=== PATIENT | male | born 1975 | race Caucasian/White ===

== ENCOUNTER → 2018-02-06 | Outpatient (CLI) | payer BC | END | disposition home or self-care (01) | LOC: HKI 11:46 | DX: M23.221 Derangement of posterior horn of medial meniscus due to old tear or injury, right knee (principal) | CPT/HCPCS: Z7500 ==

== ENCOUNTER 2018-04-20 05:24 | Day surgery (SDC) | payer BC ==
[2018-04-20] MEDS ORDERED: ROPIVACAINE 0.5 % 30 ML VIAL ×2 (06:52→07:40)
[2018-04-20] MEDS ORDERED: DESFLURANE 15 MIN (07:00)
[2018-04-20] MEDS ORDERED: GLYCOPYRROLATE 0.4 MG INJ (07:00)
[2018-04-20] MEDS ORDERED: SUCCINYLCHOLINE CHLORIDE 100 MG/5 ML SYG IV (07:00)
[2018-04-20] MEDS: BACITRACIN/POLYMYXIN 28.35 GM OINT TOP (07:16)
[2018-04-20] MEDS: ROPIVACAINE 0.5 % 30 ML VIAL (07:17)
[2018-04-20] MEDS: POLYMYXIN/BACITRACIN 1L IRRIG (07:17)
[2018-04-20] MEDS ORDERED: ONDANSETRON 4 MG INJ IV (07:30)
[2018-04-20] MEDS ORDERED: DIPHENHYDRAMINE 50 MG INJ IV (07:30)
[2018-04-20] MEDS ORDERED: HYDROmorphONE 1 MG/5 ML IV SYRINGE IV (07:30)
[2018-04-20] MEDS ORDERED: METOCLOPRAMIDE 10 MG INJ IV (07:30)
[2018-04-20] MEDS ORDERED: FENTAnyl 50 MCG/ML VIAL IV ×3 (07:30)
[2018-04-20] MEDS ORDERED: ALBUTEROL 0.083% (NEB) 2.5 MG/3 ML AMP HHN (07:30)
[2018-04-20] MEDS ORDERED: FENTAnyl 50 MCG/ML VIAL (07:39)
[2018-04-20] MEDS ORDERED: MIDAZOLAM 1 MG/ML 2 ML INJ (07:39)
[2018-04-20] MEDS ORDERED: morphine 2 MG INJ IV (08:00)
[2018-04-20] MEDS ORDERED: PROPOFOL 20 ML (08:23)
[2018-04-20] MEDS ORDERED: CEFAZOLIN 1 GM INJ (08:23)
[2018-04-20] MEDS ORDERED: LIDOCAINE 100 MG SYRINGE (08:23)
[2018-04-20] MEDS ORDERED: ROCURONIUM 50 MG INJ (08:23)
[2018-04-20] MEDS ORDERED: SUGAMMADEX SODIUM 200 MG/2 ML VIAL IV (08:24)
[2018-04-20] MEDS: MEPERIDINE 25 MG INJ IV (10:35)
[2018-04-20] MEDS: HYDROmorphONE 1 MG/5 ML IV SYRINGE IV ×3 (10:57→11:18)
[2018-04-20] MEDS: OXYCODONE/ACETAMINOPHEN (5/325) TAB PO (12:21)
== END 2018-04-20 12:30 | disposition home or self-care (01) ==
LOC: SDS 05:24
DX: S83.511A Sprain of anterior cruciate ligament of right knee, initial encounter (principal); M94.261 Chondromalacia, right knee; F41.8 Other specified anxiety disorders
CPT/HCPCS: 29888; 82306